=== PATIENT | female | born 1965 | race African-American/Black ===

== ENCOUNTER → 2017-04-22 | Outpatient (CLI) | payer BC ==
--- NOTE | ~2017-04-22 | CR63 ---
[facility] A Service of [facility] & [facility] RADIOLOGY TEXT RESULTS PATIENT: ELIEZER BENÍTEZ LOCATION: [facility] : 61 UNIT #: [id number] AGE: [address]: Giovanni Manzanares MD SEX: F ORDER DR: [id number] [facility] [address] [place], [place] [address] [id number] MR#: [id number] Acc #: [id number] NAME: ELIEZER BENÍTEZ : 1965 SEX: F STUDY DATE/TIME: 04/22/2017 13:22 UNIT: [facility] ROOM: STUDY DESCRIPTION: CR Chest 2 View Attending Physician: Giovanni Manzanares M.D. Referring Physician: Giovanni Manzanares M.D. Ordering Physician: Physician Non-Staff Primary Care Physician: Yoni Herring Sr., M.D. MEDICAL IMAGING REPORT This report is preliminary unless electronic signature is present EXAM PA and lateral chest, dated 04/22/2017. COMPARISON None HISTORY Chronic fluid retention, visual disturbances left eye for 10 years, FINDINGS PA and lateral views are obtained. The cardiovascular configuration is normal and the lungs are clear. The patient does have scoliosis. CONCLUSION Scoliosis otherwise negative chest. Dictated by... Ryan Crockett M.D. THIS IS AN ELECTRONICALLY VERIFIED REPORT Ryan Crockett M.D. at 04/22/2017 4:50 PM EDSON/luma TD: 04/22/2017 16:23 JOB #: [id number] MEDICAL IMAGING REPORT Page 1 of 1 COPY
[2017-04-22 14:02] LABS: BASOPHIL% 0.9 % (0-2.5); EOSINOPHIL% 0.2 % (0.0-7.0); HEMATOCRIT 40.7 % (35.0-45.0); HEMOGLOBIN 13.1 gm/dL (12.0-16.0); LYMPHOCYTE# 1.2 X10e3 (1.0-3.5); LYMPHOCYTE% 22.2 % (17.0-45.0); MEAN CORPUSCULAR HGB CONC 32.1 g/dL (30-36); MEAN PLATELET VOLUME 8.4 FL (6.5-11.5); MONOCYTE# 0.3 X10e3 (0-1.0); MONOCYTE% 6.2 % (3.0-12.0); NEUTROPHIL# 3.7 X10e3 (1.5-7.1); NEUTROPHIL% 70.5 % (40-75); PLATELET COUNT 247 X10e3 (140-420); RED BLOOD COUNT 5.03 X10e (3.90-5.30); RED CELL DISTRIBUTION WIDTH 13.7 % (11.0-15.5); WHITE BLOOD COUNT 5.3 X10e3 (4.0-10.5)
[2017-04-22 14:05] LABS: DIFF IND NO
== END | disposition home or self-care (01) ==
LOC: CRAD 12:55
PROVIDERS: Ophthalmology
DX: H53.9 Unspecified visual disturbance (principal); M41.9 Scoliosis, unspecified; R60.9 Edema, unspecified
CPT/HCPCS: 71020; 82164; 85025; 85652; 86592